=== PATIENT | female | born 1975 | race Caucasian/White ===

== ENCOUNTER 2024-11-02 10:45 | Emergency (ER) | payer MEDICAID ==
[~2024-11-02] VITALS: Ht 154.9 cm; Wt 90.9 kg
[2024-11-02 10:56] VITALS: TEMP 98.1
[2024-11-02 11:33] LABS: PLATELET COUNT (AUTO) 353 K/uL (150-450); RED BLOOD CELL COUNT(AUTO) 4.69 MIL/uL (4.00-5.20); RED CELL DISTRIBUTION WIDTH 13.6 % (11.5-14.5); WHITE BLOOD COUNT (AUTO) 6.2 K/uL (4.5-11.0)
[2024-11-02] MEDS: KETOROLAC TROMETHAMINE 60 MG/2 ML VIAL IM ONE (11:43)
[2024-11-02 11:49] LABS: CALCIUM, TOTAL 8.6 mg/dL (8.8-10.5); CREATININE 0.67 mg/dL (0.60-1.30); GLOMERULAR FILTR. RATE CALC > 60 mL/min (>60); GLUCOSE,RANDOM 115 mg/dL (70-110); SODIUM SERUM 141 mmol/L (136-145); UREA NITROGEN, BLOOD 9 mg/dL (7-18)
[2024-11-02 13:00] VITALS: BP 146/78; PULSE 72; RESP 15; O2SAT 99
[2024-11-02] MEDS ORDERED: IBUP-1554 PO (13:14)
[2024-11-02] MEDS ORDERED: HYDR-4062 PO (13:14)
== END 2024-11-02 14:01 | disposition home or self-care (01) ==
LOC: EMS 10:48
DX: S86.912A Strain of unspecified muscle(s) and tendon(s) at lower leg level, left leg, initial encounter (principal); I10 Essential (primary) hypertension; Z79.899 Other long term (current) drug therapy; X58.XXXA Exposure to other specified factors, initial encounter; Y93.89 Activity, other specified; Y92.89 Other specified places as the place of occurrence of the external cause; Y99.9 Unspecified external cause status
CPT/HCPCS: 99285; 29505; 93971; 80048; 84703; 85025; 85379; 36415; 73562; 96372; J1885